=== PATIENT | female | born 1990 | race Caucasian/White ===

== ENCOUNTER 2017-08-15 21:17 | Emergency (ER) | payer SELFPAY ==
[2017-08-15] MEDS ORDERED: Morphine INJ* 4 MG/ML 1 ML SYRINGE (NEW SYRINGE VERSION) IV ONE (21:44)
[2017-08-15] MEDS ORDERED: Metoclopramide IV* 5 MG/ML 2 ML VIAL IV SLOW PU ONE (21:44)
[2017-08-15 22:21] LABS: ABS Basophils 0 10^3/ul (0-0.2); ABS Eosinophils 0.8 10^3/ul (0-0.6); ABS Lymphocytes 1.8 10^3/ul (1.0-4.8); ABS Monocytes 0.9 10^3/ul (0-0.8); ABS Neutrophils 8.3 10^3/ul (1.5-7.7); ABS Nucleated RBC 0 10^3/ul; Eosinophil % 6.7 % (0-6); Hematocrit 31 % (35-47); Hemoglobin 10.6 g/dl (12.0-16.0); Lymphocyte % 15.3 % (25-47); Mean Corpuscular HGB Conc 35 g/dl (31-36); Mean Corpuscular Hemoglobin 31 pg (27-31); Mean Corpuscular Volume 91 fL (80-97); Mean Platelet Volume 7 um3 (7.4-10.4); Nucleated Red Blood Cells % 0; Platelet Count 264 10^3/ul (150-450); Red Blood Count 3.36 10^6/ul (4.0-5.4); Red Cell Distribution Width 14 % (10.5-15); White Blood Count 11.8 10^3/ul (3.5-10.8)
[2017-08-15 22:32] LABS: EGFR Non-African American 115.5 (>60)
[2017-08-15 22:50] LABS: Urine Appearance Cloudy; Urine Blood 3+ (Negative); Urine Color Yellow; Urine Ketones Negative (Negative); Urine Protein Negative (Negative); Urine Specific Gravity 1.005 (1.010-1.030); Urine Urobilinogen Negative (Negative)
[2017-08-15] MEDS ORDERED: Ampicillin CAP* 500 MG PO ONE (23:14)
--- NOTE | 2017-08-15 23:47 | ED ---
Angelo Burris Tiffany, scribed for Eldon Alonzo MD on 08/15/17 at 2203 . Abdominal Pain/Female - HPI Summary HPI Summary: The patient is a 26 year old F presenting to [facility] c/o right flank pain since today, worse since four hours ago. The patient rates the pain 9/10 in severity. Symptoms aggravated by nothing and alleviated by nothing. Treated the pain with 500mg Tylenol without relief. Denies vomiting, nausea, fever, dysuria. Patient is 24 weeks . /A0. Previous ultrasounds of kidney were negative. No history of kidney problems. - History of Current Complaint Chief Complaint: EDFlankPain Stated Complaint: 24 WKS PREG/FLANK PAIN Time Seen by Provider: 08/15/17 21:34 Hx Obtained From: Patient Onset/Duration: Lasting Days - Today, Still Present, Worse Since - Four hours ago Timing: Constant Severity Currently: Severe Pain Intensity: 9 Pain Scale Used: 0-10 Numeric Location: Flank - Right Radiates: No Aggravating Factor(s): Nothing Alleviating Factor(s): Nothing Associated Signs and Symptoms: Positive: Negative - vomiting, nausea, fever, dysuria Allergies/Adverse Reactions: Allergies Allergy/AdvReac Type Severity Reaction Status Date / Time No Known Allergies Allergy Verified 08/15/17 21:36 PMH/Surg Hx/FS Hx/Imm Hx Previously Healthy: Yes Endocrine/Hematology History: Denies: Hx Thyroid Disease Cardiovascular History: Denies: Hx Coronary Artery Disease History: Denies: Hx Kidney Infection, Hx Kidney Stones Sensory History: Denies: Hx Legally Blind, Hx Vision Problem, Hx Deafness Opthamlomology History: Denies: Hx Legally Blind EENT History: Denies: Hx Deafness Psychiatric History: Denies: Hx Panic Disorder - Surgical History Surgery Procedure, Year, and Place: None - Immunization History Date of Tetanus Vaccine: unk Date of Influenza Vaccine: none Infectious Disease History: No Infectious Disease History: Reports: Traveled Outside the [place] in Last 30 Days - [place] - Family History Known Family History: Negative: Blood Disorder - Social History Alcohol Use: None Hx Substance Use: No Substance Use Type: Reports: None Hx Tobacco Use: No Smoking Status (MU): Never Smoked Tobacco Review of Systems Positive: Other - 24 weeks . Negative: Fever Negative: Vomiting, Nausea Negative: dysuria Positive: Other - Right flank pain All Other Systems Reviewed And Are Negative: Yes Physical Exam - Summary Physical Exam Summary: VITAL SIGNS: Reviewed. GENERAL: Patient is a well-developed and nourished female who is lying comfortable in the stretcher. Patient is not in any acute respiratory distress. HEAD AND FACE: No signs of trauma. No ecchymosis, hematomas or skull depressions. No sinus tenderness. EYES: PERRLA, EOMI x 2, No injected conjunctiva, no nystagmus. EARS: Hearing grossly intact. Ear canals and tympanic membranes are within normal limits. MOUTH: Oropharynx within normal limits. NECK: Supple, trachea is midline, no adenopathy, no JVD, no carotid bruit, no c- spine tenderness, neck with full ROM. BACK: Right CVA tenderness CHEST: Symmetric, no tenderness at palpation LUNGS: Clear to auscultation bilaterally. No wheezing or crackles. CVS: Regular rate and rhythm, S1 and S2 present, no murmurs or gallops appreciated. ABDOMEN: Fundal level is at 24 weeks EXTREMITIES: FROM in all major joints, no edema, no cyanosis or clubbing. NEURO: Alert and oriented x 3. No acute neurological deficits. Speech is normal and follows commands. SKIN: Dry and warm Triage Information Reviewed: Yes Vital Signs On Initial Exam: Initial Vitals Temp Pulse Resp BP Pulse Ox 97.2 F 92 16 141/93 100 08/15/17 21:19 08/15/17 21:19 08/15/17 21:19 08/15/17 21:19 08/15/17 21:19 Vital Signs Reviewed: Yes Diagnostics - Vital Signs Vital Signs Temp Pulse Resp BP Pulse Ox 08/15/17 21:19 97.2 F 92 16 141/93 100 - Laboratory Result Diagrams: 08/15/17 22:07 08/15/17 22:07 Lab Statement: Any lab studies that have been ordered have been reviewed, and results considered in the medical decision making process. - Additional Comments Diagnostic Additional Comments: Per radiologist, US Abdomen reveals dilated upper pole calyx of the right kidney. Uncertain etiology. No other hydronephrosis of the remainder of the kidney. ED physician has reviewed this report. Re-Evaluation - Re-Evaluation First Eval Re-Evaluation Time: 23:36 Change: Improved Comment: Patient says she feels better. Advised to follow up from OB. Agreeable to discharge. Abdominal Pain Fem Course/Dx - Course Course Of Treatment: 26 y/o F c/o right flank pain since today, worse since four hours ago. Patient is . No history of kidney problems. Per radiologist, US Abdomen reveals dilated upper pole calyx of the right kidney. Uncertain etiology. No other hydronephrosis of the remainder of the kidney. ED physician has reviewed this report. We discussed patient care with Dr. Villanueva ( urology) who advised that physiological changes in CT scan are from . Patient will be discharged with prescription for antibiotics and pain medication. Also follow up from OB in 2 days. The patient is agreeable with this plan. - Diagnoses Provider Diagnoses: Urinary tract infection - Provider Notifications Discussed Care Of Patient With: Brady Villanueva Time Discussed With Above Provider: 22:27 Instructed by Provider To: Other - Dr. Villanueva (urology) advised that physiological changes from CT scan are the results of . Discharge - Discharge Plan Condition: Stable Disposition: HOME Prescriptions: Ampicillin CAP* [Ampicillin Cap*] 500 mg PO QID #40 cap oxyCODONE/Acetamin 5/325 MG* [Percocet 5/325 TAB*] 1 tab PO Q6H PRN #14 tab MDD 4 PRN Reason: Pain Patient Education Materials: Urinary Tract Infection in Women (ED), Urinary Tract Infection in (ED) Referrals: Non Staff,Doctor [Primary Care Provider] - Viviane Villarreal MD [Medical Doctor] - 2 Days Additional Instructions: Take medications as prescribed. Follow up with Dr. Villarreal (OBGYN) on Thursday, August 17. RETURN TO EMERGENCY DEPARTMENT FOR ANY NEW OR WORSENING SYMPTOMS. The documentation as recorded by the Angelo johnston Tiffany accurately reflects the service I personally performed and the decisions made by , Eldon Alonzo MD.
[2017-08-16 00:32] VITALS: BP 125/66
--- NOTE | 2017-08-16 07:34 | RAD ---
HISTORY: Flank pain COMPARISONS: None TECHNIQUE: Multiple transverse and longitudinal ultrasound images were obtained of the abdomen using grayscale, color Doppler, and spectral Doppler imaging. FINDINGS: LIVER: The liver is normal in shape, size, contour, and echogenicity. There are no focal parenchymal masses. There is normal hepatopedal flow of the portal vein on Doppler imaging. BILIARY TREE: There is no intrahepatic or extrahepatic biliary dilatation. The common duct measures 0.3 cm. GALLBLADDER: The gallbladder is well-visualized. There is no cholelithiasis, gallbladder wall thickening, pericholecystic fluid, or sonographic Simpson sign. PANCREAS: The head . Of the pancreas is unremarkable. The tail of the pancreas is not well visualized secondary to overlying bowel gas. SPLEEN: The spleen is normal in shape, size, contour, and echotexture. A splenule is noted. The spleen measures 9.4 x 3.6 x 3 cm. RIGHT KIDNEY: The right kidney is normal in shape, size, contour, and echogenicity. There is caliectasis of the upper pole. There is no appreciable nephrolithiasis. The right kidney measures 13 x 5.9 x 5.8 cm. LEFT KIDNEY: The left kidney is normal in shape, size, contour, and echogenicity. There is no hydronephrosis or nephrolithiasis. The left kidney measures 11.5 x 5.3 x 5.8 cm. AORTA AND IVC: The aorta and IVC are unremarkable. FLUID: There are no pleural effusions. There is no free fluid within the hepatorenal recess. OTHER FINDINGS: None. IMPRESSION: CALIECTASIS OF THE UPPER POLE OF THE RIGHT KIDNEY WITHOUT APPRECIABLE NEPHROLITHIASIS.
== END 2017-08-15 23:50 | disposition home or self-care (01) ==
LOC: ED 21:17
DX: O23.42 Unspecified infection of urinary tract in pregnancy, second trimester (principal); O26.832 Pregnancy related renal disease, second trimester; N28.89 Other specified disorders of kidney and ureter; Z3A.24 24 weeks gestation of pregnancy
CPT/HCPCS: 36415; 76700; 80053; 81003; 81015; 85025; 86140; 87077; 87086; 96361; 96374; 96375; 99283; A9270-GY; J2270; J2765

== ENCOUNTER 2017-12-20 14:38 | Inpatient (IN) | payer OTHER ==
[2017-12-20] MEDS ORDERED: OBEPIDURAL* 250 ML EPIDURAL ONE (15:25)
[2017-12-20] MEDS ORDERED: fentaNYL* 50 MCG/ML 2 ML VIAL (100 MCG VIAL) ONE (15:25)
[2017-12-20 15:26] LABS: ABS Basophils 0 10^3/ul (0-0.2); ABS Eosinophils 0.2 10^3/ul (0-0.6); ABS Monocytes 0.9 10^3/ul (0-0.8); ABS Neutrophils 6.9 10^3/ul (1.5-7.7); ABS Nucleated RBC 0 10^3/ul; Eosinophil % 1.7 % (0-6); Hematocrit 37 % (35-47); Hemoglobin 12.8 g/dl (12.0-16.0); Lymphocyte % 20.3 % (25-47); Mean Corpuscular HGB Conc 34 g/dl (31-36); Mean Corpuscular Hemoglobin 31 pg (27-31); Mean Corpuscular Volume 90 fL (80-97); Mean Platelet Volume 7.7 um3 (7.4-10.4); Nucleated Red Blood Cells % 0; Platelet Count 277 10^3/ul (150-450); Red Blood Count 4.13 10^6/ul (4.00-5.40); Red Cell Distribution Width 13 % (10.5-15)
[2017-12-20] MEDS ORDERED: Famotidine TAB* 20 MG PO PRN (16:13)
[2017-12-20] MEDS ORDERED: Phenylephrine IV* 40 MCG/ML 10 ML SYRINGE IV PUSH PRN ×2 (16:13)
[2017-12-20] MEDS ORDERED: Sodium Citrate/Citric Acid* 15 ML UDC PO PRN (16:13)
[2017-12-20] MEDS ORDERED: OBEPIDURAL* 250 ML EPIDURAL SCH (17:00)
--- NOTE | 2017-12-20 17:37 | HP ---
General Information - Reason for Visit Active labor - General Information Maternal Age: 27 Grav: 1 Para: 0 SAB: 0 IEA: 0 Estimated Due Date: 12/16/17 Determined By: LMP Maternal Blood Type and Rh: B Positive - Results this Serology/RPR Result: Non-Reactive Rubella Result: Immune HBsAg Result: Negative HIV Result: Negative GBS Culture Result: Negative Past Medical History Delivery History: See Records - primip Pertinent Past Medical History: See Records - hypothyroidism, kidney infections Pertinent Past Surgical History: None Pertinent Family History: Non-Contributory - Antepartal Records Antepartal Records: Reviewed, Complicated by: - UTI w/ flank pain, hypothyroidism Review of Systems Constitutional: Uncomfortable CV Complaint: No Respiratory: Shortness of Breath: No Gastrointestinal: No Nausea/Vomiting, Normal Bowel Movement Genitourinary: No Dysuria, No Bleeding, No Leaking Fluid Musculoskeletal: No Complaint, No Epigastric Pain Neurological: No Headache, No Visual Changes Movement: Normal Exam Allergies/Adverse Reactions: Allergies No Known Allergies Allergy (Verified 12/03/17 12:53) T-98.6, BP-120/83, P-109, R-18, O2-98% Lab Values - Entire Visit: Laboratory Tests 12/20/17 12/20/17 15:05 15:05 WBC 10.0 RBC 4.13 Hgb 12.8 Hct 37 MCV 90 MCH 31 MCHC 34 RDW 13 Plt Count 277 MPV 7.7 Neut % (Auto) 68.9 Lymph % (Auto) 20.3 L Tate % (Auto) 8.8 H Eos % (Auto) 1.7 Baso % (Auto) 0.3 Absolute Neuts (auto) 6.9 Absolute Lymphs (auto) 2.0 Absolute Monos (auto) 0.9 H Absolute Eos (auto) 0.2 Absolute Basos (auto) 0 Absolute Nucleated RBC 0 Nucleated RBC % 0 Blood Type B Positive Antibody Screen Negative - Measurements Height: 5 ft 10.08 in Weight: 81.193 kg Weight in lbs: 179.513724 Body Mass Index (BMI): 25.6 Pre- Weight: 65.317 kg Weight Gained This : 35 lbs and 0 ozs - Exam Breast: Breast Exam Deferred CVA: No CVA Tenderness Extremities: Edema - bilateral pedal and ankle edema Heart: Normal Rhythm/Heart Sounds HEENT: No Significant Findings Lungs: Clear Bilaterally Rectal: Rectal Exam Deferred Reflexes: DTR 2+ Thyroid: No Thyromegaly - Abdominal Exam Abdomen Exam: Non-Tender, Fundal Height Consistent with Dates - Ultrasound/Biophysical Profile Ultrasound Status: Not Done Targeted Exam Findings See L&D Outpatient Visit Provider Note for Findings: N/A Estimated Weight: 7.5# Cervical Exam: 6cm - 6cm on arrival, currently complete Effacement: 100% Station: -1 Presenting Part: Vertex Membrane Status: Bulging Bleeding/Discharge: Bloody Show EFM Findings - External Monitor Findings Baseline Heart Rate: 140 External Monitor Findings: Accelerations Present, No Pattern of Variable or Late Decelerations, Variability Moderate, Baseline Stable Contractions: Regular Contraction Frequency: 2-3 minutes Assessment/Plan - Assessment 27 year old at 40 4/7 weeks gestation in active labor, with no evidence of acidemia - Obstetrical Risk Factors Obstetrical Risk Factors: Post-Dates - Plan Plan: Admit - Anticipate Vaginal Delivery - Date/Time of Admission Date of Admission: 12/20/17 Time of Admission: 15:00
[2017-12-20] MEDS ORDERED: Oxytocin in LR* 20 UNITS/1,000 ML BAG IVPB ONE (20:09)
[2017-12-20] MEDS ORDERED: Witch Hazel PAD* JAR TOPICAL PRN (21:21)
[2017-12-20] MEDS ORDERED: Dibucaine 1% 28.35 GM TUBE PR PRN (21:21)
[2017-12-20] MEDS ORDERED: Glycerin ADULT SUPP PR PRN (21:21)
[2017-12-20] MEDS ORDERED: Acetaminophen TAB* 325 MG PO PRN (21:21)
[2017-12-20] MEDS ORDERED: Oxytocin in LR* 20 UNITS/1,000 ML BAG IVPB SCH (22:00)
[2017-12-21] MEDS ORDERED: Methylergonovine INJ* 0.2 MG/ML 1ML AMP ONE (00:20)
--- NOTE | 2017-12-21 02:53 | PROCNOTE ---
[facility] OB: Delivery Note - Delivery A Date of : 12/20/17 Time of : 20:06 [place] Sex: Male Weight at : 3.965 kg Score 1 Minute: 9 Score 5 Minutes: 9 Gestational Age in Weeks and Days at Delivery: 40 Weeks and 4 Days Delivery Method: Spontaneous Vaginal Labor: Spontaneous Did Patient attempt ?: N/A, No Previous Amniotic Fluid: Meconium Estimated Blood Loss: 400 Anesthesia/Analgesia: CEI for Labor Delivered By: Charline Wade - Nursery Level of Nursery: Regular/Bedside - Perineum Perineal Injury: Perineal Laceration, 2nd Degree Perineal Repair: By Delivering Practioner - Events Delivery Events of Note: Pitocin Only After Delivery, Supplemental O2 to Mother , Post- Bleeding - Meds Given - Additional Delivery Notes Additional Delivery Notes: Pt admitted in active labor at 40 4/7 weeks gestation. She requested and received an epidural for pain relief. She progressed to full dilation at which time AROM performed, revealing meconium stained fluid. Pushing initiated when pt felt urge to push. Pt pushed with good effort and delivered a viable male in JAYME position with a compound hand over a second degree laceration. Infant passed to maternal abdomen. Cord clamped and cut when pulsation ceased. Uterine tone initially boggy, improved with IV Pitocin. Clots expressed from lower uterine segment. Second degree laceration repaired in the usual fashion with absorbable suture resulting in good hemostasis and tissue approximation. remained skin to skin for first hour of life. Mother and stable at this time.
[2017-12-21 06:27] LABS: ABS Basophils 0.1 10^3/ul (0-0.2); ABS Eosinophils 0.1 10^3/ul (0-0.6); ABS Lymphocytes 2.5 10^3/ul (1.0-4.8); ABS Monocytes 1.3 10^3/ul (0-0.8); ABS Nucleated RBC 0 10^3/ul; Eosinophil % 0.4 % (0-6); Hematocrit 28 % (35-47); Hemoglobin 9.7 g/dl (12.0-16.0); Lymphocyte % 16.7 % (25-47); Mean Corpuscular HGB Conc 35 g/dl (31-36); Mean Corpuscular Hemoglobin 31 pg (27-31); Mean Corpuscular Volume 91 fL (80-97); Mean Platelet Volume 7.5 um3 (7.4-10.4); Nucleated Red Blood Cells % 0; Platelet Count 246 10^3/ul (150-450); Red Blood Count 3.08 10^6/ul (4.00-5.40); Red Cell Distribution Width 13 % (10.5-15); White Blood Count 14.9 10^3/ul (3.5-10.8)
[2017-12-21] MEDS: Ibuprofen TAB* 600 MG PO PRN ×2 (08:36→16:07)
[2017-12-21] MEDS: Docusate CAP* 100 MG PO SCH ×3 (08:37→19:59)
[2017-12-21] MEDS: Ferrous Gluconate TAB* 324 MG TAB PO SCH ×2 (08:37→19:59)
[2017-12-21 21:58] VITALS: BP 114/75
[2017-12-22] MEDS: Ibuprofen TAB* 600 MG PO PRN (02:32)
== END 2017-12-22 13:45 | disposition home or self-care (01) | DRG 775 ==
LOC: MCHOBOUT 14:38 → MCHOB 15:19
PROVIDERS: ADMIT Midwife; ATTEND Midwife
PROC: 10E0XZZ Delivery of Products of Conception, External Approach (ICD-10-PCS; principal; 2017-12-20)
PROC: 0KQM0ZZ Repair Perineum Muscle, Open Approach (ICD-10-PCS; 2017-12-20)
PROC: 10907ZC Drainage of Amniotic Fluid, Therapeutic from Products of Conception, Via Natural or Artificial Opening (ICD-10-PCS; 2017-12-20)
DX: O48.0 Post-term pregnancy (principal); O99.284 Endocrine, nutritional and metabolic diseases complicating childbirth; E03.8 Other specified hypothyroidism; O32.6XX0 Maternal care for compound presentation, not applicable or unspecified; O77.0 Labor and delivery complicated by meconium in amniotic fluid; O70.1 Second degree perineal laceration during delivery; O90.81 Anemia of the puerperium; Z3A.40 40 weeks gestation of pregnancy; Z37.0 Single live birth
CPT/HCPCS: 36415; 85025; 86850; 86900; 86901; A9270-GY; J2210; J3010

== ENCOUNTER 2022-04-28 03:20 | Inpatient (IN) ==
[2022-04-28] MEDS ORDERED: Buffered Lidocaine 1% SYRIN 1 ml INTRADERM ONE (04:04)
[2022-04-28] MEDS ORDERED: Lactated Ringers 1000 ml BAG 1,000 ML IV ONE (04:04)
[2022-04-28] MEDS ORDERED: Lactated Ringers 1000 ml BAG 1,000 ML IV SCH ×2 (05:00→06:00)
[2022-04-28] MEDS ORDERED: Dibucaine 1% OINT 28.35 GM TUBE PR PRN (05:39)
[2022-04-28] MEDS ORDERED: Oxytocin 10 UNITS/ML 1 ML VIAL IM ONE (05:39)
[2022-04-28] MEDS ORDERED: Glycerin ADULT 2.4 gm SUPP PR PRN (05:39)
[2022-04-28] MEDS ORDERED: Witch Hazel PAD JAR TOPICAL PRN (05:39)
[2022-04-28 07:38] LABS: Urine Benzodiazepine Screen None Detected (None Detect); Urine Cannabinoids Screen None Detected (None Detect); Urine Opiates Screen None Detected (None Detect)
[2022-04-28] MEDS ORDERED: Lidocaine 1% VIAL 10 MG/ML VIAL 30 ML ONE (13:17)
[2022-04-29 07:06] LABS: ABS Basophils 0.1 10^3/ul (0-0.2); ABS Eosinophils 0.2 10^3/ul (0-0.6); ABS Lymphocytes 2.2 10^3/ul (1.0-4.8); ABS Monocytes 0.8 10^3/ul (0-0.8); ABS Neutrophils 8.4 10^3/ul (1.5-7.7); Eosinophil % 1.4 %; Hematocrit 37 % (35-47); Hemoglobin 12.5 g/dL (12.0-16.0); Lymphocyte % 18.9 %; Mean Corpuscular HGB Conc 34 g/dL (31-36); Mean Corpuscular Hemoglobin 31 pg (27-31); Mean Corpuscular Volume 90 fL (80-97); Mean Platelet Volume 7.5 fL (7.4-10.4); Platelet Count 318 10^3/uL (150-450); Red Blood Count 4.04 10^6 /uL (3.70-4.87); Red Cell Distribution Width 13 % (10-15); White Blood Count 11.6 10^3/uL (3.5-10.8)
[2022-04-29 09:19] VITALS: BP 120/68
== END 2022-04-29 15:17 | disposition home or self-care (01) | DRG 807 ==
LOC: MCHOBOUT 03:20 → MCHOB 03:51
PROVIDERS: ADMIT Midwife; ATTEND Midwife